=== PATIENT | male | born 1990 | race African-American/Black ===

== ENCOUNTER 2018-12-22 08:06 | Emergency (ER) | payer SELFPAY ==
[2018-12-22] MEDS ORDERED: Ketorolac Tromethamine 60 MG/2 ML VIAL ONE (08:20)
== END 2018-12-22 08:39 | disposition home or self-care (01) ==
LOC: SCSER 08:06
DX: K02.9 Dental caries, unspecified (principal); F17.210 Nicotine dependence, cigarettes, uncomplicated
CPT/HCPCS: 96372; J1885